=== PATIENT | male | born 1990 | race Caucasian/White ===

== ENCOUNTER 2018-02-23 12:50 | Inpatient (IN) | payer SELFPAY ==
--- NOTE | 2018-02-23 13:25 | EDPHY ---
H & P Stated Complaint: Infsct/swelling L hand;+IV drug use:last 3 days ago;also sore by mouth Time Seen by Provider: 02/23/18 13:24 HPI/ROS: CHIEF COMPLAINT: Hand pain and swelling HISTORY OF PRESENT ILLNESS: This is a 27-year-old male with a history of IVDA ( methamphetamine). He presents with pain and swelling involving his left hand. This initially began in the left thumb. He attributed it to dry cracked skin. He 1st noticed this 2 days ago, yesterday his left thumb was quite painful and today when he awoke the pain extended into his left wrist. It is made worse by any movement. He also notes redness and warmth of the thumb. He has not had fever today but thinks he might have had fever a few days ago. No methamphetamine use for 3 days so he has been going through withdrawal, which he believes is essentially completed. He also notes a painful sore on the right side of his mouth. REVIEW OF SYSTEMS: A ten point review of systems was performed and is negative with the exception of the items mentioned in the HPI. Past medical history: IVDA Past surgical history: Negative Social history: He is originally from [place]. He has been in the [facility] for 8 months. He is currently staying with friends. He smokes 1 pack of cigarettes daily. He quit alcohol 2 months ago. History of IV methamphetamine use, none for 3 days. General Appearance: Alert. Vital signs reviewed. Eyes: Pupils equal and round, no conjunctival injection, no discharge. Anicteric. ENT, Mouth: Mucous membranes are moist, no oropharyngeal erythema or edema. There is what appears to be a herpes simplex lesion at the corner of his mouth on the right--the lesion has vesicles. No intraoral lesions noted. Neck: No lymphadenopathy, supple. Respiratory: Lungs are clear to auscultation; no wheezes, rales, or rhonchi. Cardiovascular: Regular rate and rhythm; no murmur, rub, or gallop. Gastrointestinal: Abdomen is soft and nontender, no masses or organomegaly, bowel sounds normal. Skin: Skin of both hands is dirty and stained with what he says is paint. Track schmidt on the right arm in the antecubital fossa and also proximal upper arm. I also see a few possible kris puncture sites in the left arm. Skin of the left hand is dry and cracked. Skin of the digits is mildly erythematous and slightly warm. The left thumb is erythematous and warm with diffuse swelling. Back: Nontender to palpation over the thoracolumbar spine. No CVAT. Extremities: See skin exam above. There is swelling, erythema, and warmth of the digits of his left hand with the thumb being most involved. The thumb is swollen throughout its length; however, there is no tenderness along the flexor tendon and no pain with passive extension. He is holding his digits in flexion. He has pain along the anterior left wrist with some erythema extending on to the wrist itself. There is wrist pain with flexion or extension. Pulses: 2+ radial pulses bilaterally. Neurological: Alert and oriented. Moving all four extremities easily and equally. Psychiatric: Normal affect. - Personal History Current Tetanus Diphtheria and Acellular Pertussis (TDAP): No - Medical/Surgical History Other PMH: IV drug abuse - Social History Smoking Status: Current every day smoker Constitutional: Initial Vital Signs Temperature (C) 36.9 C 02/23/18 12:54 Heart Rate 88 02/23/18 12:54 Respiratory Rate 16 02/23/18 12:54 Blood Pressure 103/78 02/23/18 12:54 O2 Sat (%) 95 02/23/18 12:54 O2 Delivery Mode Room Air Allergies/Adverse Reactions: No Known Allergies Allergy (Unverified 02/23/18 12:54) Home Medications: Medication Instructions Recorded NK [No Known Home Meds] 02/23/18 Medical Decision Making ED Course/Re-evaluation: 27-year-old IVDA, left hand cellulitis. He was given a dose of IV vancomycin 1 g in the emergency department. I have spoken with Dr. Elisabeth Shelton, orthopedic surgery, who will see the patient in consultation to evaluate for the possibility of flexor tenosynovitis. The patient is being admitted to the hospitalist service for continued IV antibiotics and further treatment as needed. Differential Diagnosis: I considered a differential diagnosis that includes but is not limited to endocarditis, cellulitis, abscess, flexor tenosynovitis, septic arthritis. - Data Points Laboratory Results: Laboratory Results 02/23/18 13:10 02/23/18 13:10 02/23/18 02/23/18 13:10 13:10 WBC 7.99 10^3/uL 10^3/uL (3.80-9.50) RBC 4.88 10^6/uL 10^6/uL (4.40-6.38) Hgb 14.4 g/dL g/dL (13.7-17.5) Hct 43.1 % % (40.0-51.0) MCV 88.3 fL fL (81.5-99.8) MCH 29.5 pg pg (27.9-34.1) MCHC 33.4 g/dL g/dL (32.4-36.7) RDW 12.4 % % (11.5-15.2) Plt Count 328 10^3/uL 10^3/uL (150-400) MPV 9.8 fL fL (8.7-11.7) Neut % (Auto) 68.7 % % (39.3-74.2) Lymph % (Auto) 21.0 % % (15.0-45.0) Hand % (Auto) 6.9 % % (4.5-13.0) Eos % (Auto) 2.6 % % (0.6-7.6) Baso % (Auto) 0.5 % % (0.3-1.7) Nucleat RBC Rel Count 0.0 % % (0.0-0.2) Absolute Neuts (auto) 5.49 10^3/uL 10^3/uL (1.70-6.50) Absolute Lymphs (auto) 1.68 10^3/uL 10^3/uL (1.00-3.00) Absolute Monos (auto) 0.55 10^3/uL 10^3/uL (0.30-0.80) Absolute Eos (auto) 0.21 10^3/uL 10^3/uL (0.03-0.40) Absolute Basos (auto) 0.04 10^3/uL 10^3/uL (0.02-0.10) Absolute Nucleated RBC 0.00 10^3/uL 10^3/uL (0-0.01) Immature Gran % 0.3 % % (0.0-1.1) Immature Gran # 0.02 10^3/uL 10^3/uL (0.00-0.10) Sodium 143 mEq/L mEq/L (135-145) Potassium 4.6 mEq/L mEq/L (3.5-5.2) Chloride 103 mEq/L mEq/L (97-110) Carbon Dioxide 27 mEq/l mEq/l (22-31) Anion Gap 13 mEq/L mEq/L (8-16) BUN 16 mg/dL mg/dL (7-23) Creatinine 0.8 mg/dL mg/dL (0.7-1.3) Estimated GFR > 60 Glucose 91 mg/dL mg/dL (70-100) Calcium 9.4 mg/dL mg/dL (8.5-10.4) Medications Given: Nicotine (Nicoderm Cq) 21 mg TD DAILY ASHLEY Stop: 08/22/18 14:59 Last Admin: 02/23/18 16:04 Dose: 21 mg Discontinued Medications Vancomycin/Sodium Chloride (Vancomycin 1 Gm (Premix)) 250 mls @ 250 mls/hr IV EDNOW ONE PRN Reason: Protocol Stop: 02/23/18 15:03 Last Admin: 02/23/18 14:21 Dose: 250 mls Departure - Departure Disposition: [facility] Acute Clinical Impression: Cellulitis and abscess of hand Condition: Good
[2018-02-23 13:45] LABS: PLATELET COUNT 328 10^3/uL (150-400)
[2018-02-23] MEDS ORDERED: VANCOMYCIN HCL/NORMAL SALINE 250 ML IV ONE (14:04)
[2018-02-23] MEDS ORDERED: ACETAMINOPHEN 325 MG TAB PO PRN (14:19)
[2018-02-23] MEDS ORDERED: IBUPROFEN 200 MG TAB PO PRN (14:19)
[2018-02-23] MEDS ORDERED: ONDANSETRON DISINTEGRATING 4 MG TAB PO PRN (14:19)
[2018-02-23] MEDS ORDERED: ONDANSETRON 4 MG/2 ML VIAL IVP PRN (14:19)
[2018-02-23] MEDS ORDERED: PROMETHAZINE HCL 25 MG/ML INJ IVP PRN (14:19)
[2018-02-23] MEDS ORDERED: oxyCODONE IR 5 MG TAB PO PRN (14:51)
[2018-02-23] MEDS ORDERED: NICOTINE POLACRILEX 2 MG GUM B PRN (14:51)
[2018-02-23] MEDS: NICOTINE 21 MG/24 HR PATCH TD SCH (16:04)
--- NOTE | 2018-02-23 16:26 | PDGENHP ---
History and Physical - Chief Complaint pain/swelling thumb and wrist - History of Present Illness 27yo M with PMH of IVDA presenting with 2 days of pain and swelling in his left thumb, first finger and wrist. He denies any injury to the area. He notes that he has had a small crack in the skin of the left thumb for quite some time, but otherwise no broken skin. He is currently homeless and therefore has had very limited ability to remain clean and notes that his hands have been filthy for months. He does use IV drugs and shares needles, his last use was 3 days ago. He denies ever shooting into the wrist or hand on that affected side. He has not had fever or chills. He has no other skin lesions. He has never been tested for HIV or Hep c and would like to be. History Information - Allergies/Home Medication List Allergies/Adverse Reactions: No Known Allergies Allergy (Unverified 02/23/18 12:54) Home Medications: NK [No Known Home Meds] 02/23/18 [Last Taken Unknown] I have personally reviewed and updated: family history, medical history, social history, surgical history - Past Medical History Additional medical history: IV drug abuse - Surgical History Reports: no pertinent surgical hx - Family History Positive for: non-pertinent - Social History Smoking Status: Current every day smoker Alcohol Use: Sober Drug Use: Other (methamphetamine, IV) Review of Systems Review of Systems: ROS: 10pt was reviewed & negative except for what was stated in HPI & below Physical Exam Physical Exam: Temp Pulse Resp BP Pulse Ox 37.6 C 100 16 135/71 H 98 02/23/18 15:23 02/23/18 15:23 02/23/18 15:23 02/23/18 15:23 02/23/18 15:23 Constitutional: no apparent distress, appears nourished Eyes: PERRL, anicteric sclera Ears, Nose, Mouth, Throat: moist mucous membranes, hearing normal Cardiovascular: regular rate and rhythym, no murmur, rub, or gallop, No edema Respiratory: no respiratory distress, no rales or rhonchi, clear to auscultation Gastrointestinal: normoactive bowel sounds, soft, non-tender abdomen Genitourinary: no bladder tenderness Skin: warm, normal color Musculoskeletal: full muscle strength, joint tenderness, pain with ROM Neurologic: AAOx3 Psychiatric: interacting appropriately, not anxious, not encephalopathic Lab Data & Imaging Review 02/23/18 13:10 02/23/18 13:10 WBC 7.99 10^3/uL (3.80-9.50) 02/23/18 13:10 RBC 4.88 10^6/uL (4.40-6.38) 02/23/18 13:10 Hgb 14.4 g/dL (13.7-17.5) 02/23/18 13:10 Hct 43.1 % (40.0-51.0) 02/23/18 13:10 MCV 88.3 fL (81.5-99.8) 02/23/18 13:10 MCH 29.5 pg (27.9-34.1) 02/23/18 13:10 MCHC 33.4 g/dL (32.4-36.7) 02/23/18 13:10 RDW 12.4 % (11.5-15.2) 02/23/18 13:10 Plt Count 328 10^3/uL (150-400) 02/23/18 13:10 MPV 9.8 fL (8.7-11.7) 02/23/18 13:10 Neut % (Auto) 68.7 % (39.3-74.2) 02/23/18 13:10 Lymph % (Auto) 21.0 % (15.0-45.0) 02/23/18 13:10 [place] % (Auto) 6.9 % (4.5-13.0) 02/23/18 13:10 Eos % (Auto) 2.6 % (0.6-7.6) 02/23/18 13:10 Baso % (Auto) 0.5 % (0.3-1.7) 02/23/18 13:10 Nucleat RBC Rel Count 0.0 % (0.0-0.2) 02/23/18 13:10 Absolute Neuts (auto) 5.49 10^3/uL (1.70-6.50) 02/23/18 13:10 Absolute Lymphs (auto) 1.68 10^3/uL (1.00-3.00) 02/23/18 13:10 Absolute Monos (auto) 0.55 10^3/uL (0.30-0.80) 02/23/18 13:10 Absolute Eos (auto) 0.21 10^3/uL (0.03-0.40) 02/23/18 13:10 Absolute Basos (auto) 0.04 10^3/uL (0.02-0.10) 02/23/18 13:10 Absolute Nucleated RBC 0.00 10^3/uL (0-0.01) 02/23/18 13:10 Immature Gran % 0.3 % (0.0-1.1) 02/23/18 13:10 Immature Gran # 0.02 10^3/uL (0.00-0.10) 02/23/18 13:10 Sodium 143 mEq/L (135-145) 02/23/18 13:10 Potassium 4.6 mEq/L (3.5-5.2) 02/23/18 13:10 Chloride 103 mEq/L (97-110) 02/23/18 13:10 Carbon Dioxide 27 mEq/l (22-31) 02/23/18 13:10 Anion Gap 13 mEq/L (8-16) 02/23/18 13:10 BUN 16 mg/dL (7-23) 02/23/18 13:10 Creatinine 0.8 mg/dL (0.7-1.3) 02/23/18 13:10 Estimated GFR > 60 02/23/18 13:10 Glucose 91 mg/dL (70-100) 02/23/18 13:10 Calcium 9.4 mg/dL (8.5-10.4) 02/23/18 13:10 Assessment & Plan Assessment: Cellulitis (Acute) 27 yo homeless male with hx of IVDA presenting with left thumb cellulitis # left thumb cellulitis: in the setting of IVDA and poor hygiene. Started on vancomycin which will be continued for now. Unfortunately blood cultures were not obtained prior to abx, but will order now. Dr. Shelton of ortho consulted to eval for possible flexor tenosynovitis and will ask for ID to eval in am. # IVDA: last use 3 days prior to admission, hx of using dirty needles, will test for HIV/hep C. States he has had withdrawal in the last several days but it has now largely resolved. # homelessness: will ask CM to get involved # observation status, so long as above issues resolve will likely need < 48 hours stay Patient new to my care. Old records reviewed and summarized as above. Care plan reviewed with ER doctor as above.
--- NOTE | 2018-02-23 19:26 | ASMTCMCOM ---
CM Note CM Note Notes: Pt admitted with cellulitis and hx of IV drug use. Started on IV antibiotics. Per LISA Chen, asked to meet with pt's parents, Izabella and Donnie Inman. Per Izabella, pt's mother, pt has a long history of addictive behaviors. The pt has been struggling with substance abuse for years now and has had a few rehab stays without success. Most recently the pt was in a [facility] in [place] for meth use. The pt left the facility after one month and started using again. The mother says she has been working with [facility] here in [place], but the pt has been refusing treatment/detox. The mother states the pt "abuses everything - alcohol, meth, whatever he can get." The pt's mother says he "is currently homeless and either couch surfs or sleeps on the streets." She said "every time the pt gets a job, he spends all of his money on drugs or alcohol and then ends up getting fired." The parents are both willing to help the pt get into a rehab and to let him return home, if he will sober up. Both parents are requesting CM assistance with drug/alcohol resources and/or placement for treatment. Parents would ideally like to there to be an intervention. This CM explained we can assist the family with a care conference and can provide resources, but given pt's age, pt has to be willing and open to discussion. CM unable to meet with pt today. CM to see pt on Sun 02/24 to discuss current situation/needs and to provide resources. Both parents given CM business card for further questions or concerns. Will continue to follow. Current Discharge Plan: To be determined Date Signed: 02/23/2018 07:25 PM Electronically Signed By:Natty Howell RN
[2018-02-24] MEDS: VANCOMYCIN 1.25 GM in NS 250 ML IV SCH ×2 (02:09→13:25)
[2018-02-24] MEDS: NICOTINE 21 MG/24 HR PATCH TD SCH (10:29)
--- NOTE | 2018-02-24 14:05 | HOSPPROG ---
Hospitalist Progress Note Assessment/Plan: # Acute left thumb cellulitis/suspect tenosynovitis - pt with pronounced pain with movement of his thumb and fingers Erythema slightly improved overnight since IV abx- Blood Cx NGTD oxygen saturations 95% on RA - contacted Dr. Shelton who will eval today - cont IV vancomycin - encouraged pt to shower and clear hands for assessments today - NSAIDS prn # h/o IVDA - no active signs of withdrawal - will need resources for dc # proph - lovenox # diet - NPO until ortho eval # dispo - > 2MN as requires IV abx and ortho eval for hand cellulitis I have discussed the case with Dr. Shelton he will eval today Subjective: no noticeable improvement Objective: Vital Signs Temp Pulse Resp BP Pulse Ox 37.3 C 84 16 128/59 H 96 02/24/18 11:36 02/24/18 11:36 02/24/18 11:36 02/24/18 11:36 02/24/18 11:36 02/23/18 02/24/18 02/25/18 05:59 05:59 05:59 Intake Total 800 Balance 800 - Physical Exam Constitutional: appears nourished, unkempt Eyes: anicteric sclera Ears, Nose, Mouth, Throat: dry mucous membranes Cardiovascular: regular rate and rhythym Respiratory: no respiratory distress Gastrointestinal: normoactive bowel sounds Genitourinary: no bladder fullness Skin: other (erythema on palmar aspect of left thumb and marked assoicated swell ) Musculoskeletal: other (limited ROM of the fingers and thumb on left hand) Neurologic: AAOx3 Psychiatric: interacting appropriately Lymph, Heme, Immunologic: no cervical LAD ICD10 Worksheet Patient Problems: Problems Problem Status Onset Cellulitis Acute Cellulitis and abscess of hand Acute
--- NOTE | 2018-02-24 14:41 | PDMN ---
Medical Necessity Medical necessity: C/M review: Patient [place] [facility] Cellulitis: Acute and persistent left thumb cellulitis - suspect tenosynovitis , left thumb erythema, pain requiring planned 02/24/2018 Hand Surgery consult, ongoing IV Vancomycin Q 12 hrs., NSAIDS as needed, comorbid history of IV drug abuse. MD anticipates > 2 MN LOS for ongoing med nec for eval and TX of above.
--- NOTE | 2018-02-24 15:44 | SOAPPROG ---
SOAP Progress Note Assessment/Plan: Assessment: Plan: Subjective: states pain is better pain with passive motion but inconsistent swelling into thumb cont abx re-eval tomorrow full consult to be dictated Objective: Vital Signs Temp Pulse Resp BP Pulse Ox 37.4 C 87 16 115/68 97 02/24/18 15:10 02/24/18 15:10 02/24/18 15:10 02/24/18 15:10 02/24/18 15:10 02/23/18 02/24/18 02/25/18 05:59 05:59 05:59 Intake Total 800 Balance 800 ICD10 Worksheet Patient Problems: Problems Problem Status Onset Cellulitis Acute Cellulitis and abscess of hand Acute
--- NOTE | 2018-02-24 16:21 | GCON ---
[f rep st] CONSULTATION INFECTIOUS DISEASE CONSULTATION DATE OF CONSULTATION: 02/24/2018 REFERRING PHYSICIAN: Daren Barragan MD REASON FOR CONSULTATION: Left thumb and hand infection for further evaluation and opinion. CHIEF COMPLAINT: Acute swelling, redness, and pain of the left thumb and hand into the wrist. HISTORY OF PRESENTING ILLNESS: This is a 27-year-old, male with a past medical history significant for ADHD and injection drug usage. He recently used methamphetamine about 4 days ago. About 3 days ago, he developed acute pain and swelling of his left thumb and 1st finger that actually extended into his palm and into his wrist. He noticed that it was red in nature as well. He denied any fevers or shaking chills. He denied any trauma to his extremity. He stated that his hands are chronically cracked and it is hard to keep his hands clean. He denied any injection into the thumb or wrist or that extremity at all. He says he normally injects into his right upper extremity. The patient was placed on vancomycin therapy. The area was somewhat demarcated. At present, the area of erythema has improved from areas of demarcation. The skin is not hot or warm to touch. The left thumb and hand are swollen still and there is some focal swelling down to the wrist area as well. He has pain with flexion and extension of his fingers, worse when he extends his fingers. He also has pain while flexing and extending his wrist. Infectious Disease is now consulted for further evaluation and opinion. REVIEW OF SYSTEMS: GENERAL: No fevers or shaking chills. HEAD: No headaches. EYES: No change in vision. ENT: No sore throat, difficulty swallowing, ear pain, or ear drainage. CARDIOVASCULAR: No chest pain or rapid heartbeat. RESPIRATORY: No shortness of breath, cough, or sputum production. ABDOMEN: No nausea, vomiting, abdominal pain, or diarrhea. : No dysuria or hematuria. BACK: No flank pain or back pain. EXTREMITIES: No lower extremity edema. MUSCULOSKELETAL: No other joint pains. SKIN: No other rashes or open wounds except for he does have a little sore around his corner of his mouth that he has been dealing with that has sort of drained, crusts, and scabs and then falls off and then drains, crusts, and scabs. He also has friction changes from his shoe on the back of his left leg. There is a small pustule there as well. Rest of 10-point review of systems was essentially negative except for above. PAST MEDICAL HISTORY: Significant for ADHD and injection drug usage. PAST SURGICAL HISTORY: None. ALLERGIES: No known drug allergies. SOCIAL HISTORY: He smokes a pack per day. He does not drink alcohol. He uses IV meth amphetamine since the age of 22. He states he lives with his family here. He is sexually active with female preference. He only intermittently uses condoms. He does not know his sexual partners well. He denies any history of sexually-transmitted infections. Patient believes he received all his childhood immunizations. FAMILY HISTORY: Reviewed and found to be noncontributory. PHYSICAL EXAMINATION: VITAL SIGNS: Temperature 34.4. Pulse is 87. Respiratory rate is 16, blood pressure 115/68, saturation 90% on room air. GENERAL: Patient is resting in bed in no acute respiratory distress. Awake, alert, oriented x3. HEENT: Eyes: Pupils equal, round, react to light. There is no conjunctival injection or petechiae. Oropharynx is clear. There is no posterior erythema or thrush. CARDIOVASCULAR: S1, S2. Regular rate and rhythm. No obvious murmurs appreciated. RESPIRATORY: Clear to auscultate bilaterally. No rhonchi or rales appreciated. ABDOMEN: Positive bowel sounds in upper quadrants. Soft, nontender, and nondistended. No obvious organomegaly appreciated. EXTREMITIES: No lower extremity edema. No obvious joint pain or tenderness on palpation of the knees. He has a small abrasion over his left lower leg, and he has a small pimple just above that. Other pertinent findings : His left thumb is acutely swollen extending into the palm and there is this other small area of swelling of the wrist. It is painful for him to extend his digits. The skin is not warm or hot to touch. The erythema has improved when compared to demarcated lines, but the areas are tender to palpate especially over the wrist and when extending the digits. LABS: White blood cell count 7.9, hemoglobin 14.4. Platelets are 328. Neutrophil count is 68.7. Chemistry is sodium 142, potassium 4.6, chloride 103 , bicarb 27, BUN is 16, creatinine 0.8. HIV antibody pending. Hep C antibody pending. Blood cultures x2 sets pending. ASSESSMENT: Acute left thumb and hand cellulitis/infection with extension of erythema down into the wrist and forearm with possible tenosynovitis. PLAN: At this point in time, patient is responding to vancomycin therapy well. There has been good clinical response and recession of erythema from demarcated lines. However, patient continues to have pain and swelling as well as pain with extension and flexion of digits. Dr. Shelton has been consulted. So await his evaluation to determine best next step. He will likely need exploration. Cultures are pending. Will continue on vancomycin. Care coordinated with hospitalist team and his nurse. Thank you very much for providing this opportunity to care for your patient in consultation. /[id number]/MODL MTDD
--- NOTE | 2018-02-24 16:56 | GCON ---
[f rep st] CONSULTATION INPATIENT CONSULTATION DATE OF CONSULTATION: 02/24/2018 CHIEF COMPLAINT: Left hand and thumb pain. HISTORY OF PRESENT ILLNESS: The patient is a 27-year-old male, an IV drug abuser, who developed pain into his hand. He states he was not injecting around this area, and simply that his skin was cracke d in the area. He developed pain and swelling into the thumb. He has been admitted for antibiotic u se. I have been asked to evaluate him for surgical treatment. PHYSICAL EXAMINATION: GENERAL: Patient is grossly neurologically intact to all the digits, to the r adial, median and ulnar nerves. He has minimal pain to range of motion to the wrist, to flexion and extension. He has some swelling and tenderness noted to the anterior portion of the DRUJ. He is als o tender to the thenar eminence and to the thumb itself. He has some minor pain noted to passive ran ge of motion across the IP joint of the thumb, as well as [id number] pain to passive range of m otion to the middle and ring fingers, but not to the index or small fingers. ASSESSMENT AND PLAN: The patient is status post left hand infection. Secondary to his physical exam ination, as well as being afebrile, discussion was had with the patient regarding conservative versus operative treatment. Given his improvement in symptomatology and the inconsistency in his [place] s igns, it is decided to continue with conservative management, reevaluate tomorrow and see if he virginie nues to have improving or worsening symptoms, and have treatment guided based on not only his symptom atology, but also whether he remains afebrile, and what his white count continues to do. /[id number]/MODL
[2018-02-24] MEDS: MUPIROCIN 2% 22 GM OINT TP SCH ×2 (17:36→23:04)
[2018-02-25] MEDS: VANCOMYCIN 1.25 GM in NS 250 ML IV SCH ×2 (02:10→14:42)
[2018-02-25] MEDS: NICOTINE 21 MG/24 HR PATCH TD SCH (08:45)
[2018-02-25] MEDS: MUPIROCIN 2% 22 GM OINT TP SCH ×3 (08:46→21:06)
--- NOTE | 2018-02-25 10:30 | SOAPPROG ---
SOAP Progress Note Assessment/Plan: Assessment: Plan: L hand infection - appears to be improving w/ abx, will con't to monitor, should not require I&D 02/25/18 10:29 Subjective: Reports improvement in both pain and function of the hand. Has more ROM today than he did yesterday. Objective: Vital Signs Temp Pulse Resp BP Pulse Ox 36.5 C 75 16 122/65 H 96 02/25/18 10:04 02/25/18 10:04 02/25/18 10:04 02/25/18 10:04 02/25/18 10:04 Laboratory Results 02/25/18 04:32 02/24/18 02/25/18 02/26/18 05:59 05:59 05:59 Intake Total 800 500 Balance 800 500 NO fever, minimal pain to palp over the fingers and thumb, swelling is improved , no lymphangitis. - Time Spent With Patient Time Spent With Patient: 10 - Pending Discharge Pending Discharge Within 24 Hours: No Pending Discharge Within 48 Hours: No ICD10 Worksheet Patient Problems: Problems Problem Status Onset Cellulitis Acute Cellulitis and abscess of hand Acute
[2018-02-25] MEDS ORDERED: TDAP ADULT 0.5 ML INJ (BOOSTRIX) IM ONE (12:10)
[2018-02-25 12:46] LABS: HEPATITIS B SURFACE ANTIGEN NEGATIVE (NEGATIVE)
[2018-02-25 13:03] LABS: HEPATITIS B CORE AB TOTAL NEGATIVE (NEGATIVE)
--- NOTE | 2018-02-25 13:15 | PCMIDPN ---
Assessment/Plan: Assessment/Plan: * Left hand tenosynovitis in the setting of injection drug use: Clinically improved with vancomycin. Range of motion of digits significantly better. Continue to follow thumb exam to ensure does not evolve into drainable abscess. Continue vancomycin in interim. * Injection drug use: HIV antibody and hepatitis serologies pending. Will provide Tdap as patient is unclear when had last tetanus booster. 02/25/18 13:12 Subjective: Patient with less left hand pain and improved range of motion. Objective: Vital Signs Temp Pulse Resp BP Pulse Ox 36.5 C 75 16 122/65 H 96 02/25/18 10:04 02/25/18 10:04 02/25/18 10:04 02/25/18 10:04 02/25/18 10:04 Laboratory Results 02/25/18 10:57 02/25/18 04:32 02/24/18 02/25/18 02/26/18 05:59 05:59 05:59 Intake Total 800 500 Balance 800 500 Vancomycin # 2 Blood cultures x2 no growth - Physical Exam General Appearance: alert, no apparent distress EENT: No conjunctival petechiae Respiratory: lungs clear, No respiratory distress Cardiac/Chest: regular rate, rhythm, No systolic murmur Extremities: inflammation (Left hand with resolution of erythema with residual edema and tenderness of thumb; flexion and extension markedly improved; possible underlying fluid in left thumb pad although no faizan fluctuance) Skin: No embolic lesions ICD10 Worksheet Patient Problems: Problems Problem Status Onset Cellulitis Acute Cellulitis and abscess of hand Acute
[2018-02-25 13:21] LABS: HEPATITIS C ANTIBODY TOTAL REACTIVE (NEGATIVE); HIV TYPE 1 AND 2 NEGATIVE (NEGATIVE)
--- NOTE | 2018-02-25 17:12 | HOSPPROG ---
Hospitalist Progress Note Assessment/Plan: # Acute left thumb cellulitis/suspect tenosynovitis - pt with markedly reduced pain with movement of his thumb and fingers Erythema improved overnight - Blood Cx NGTD oxygen saturations 95% on RA - Dr. Shelton agrees with conservative management - cont IV vancomycin - NSAIDS prn # h/o IVDA - no active signs of withdrawal - HIV pending - will need resources for dc # proph - lovenox # diet - regular # dispo - > 2MN as requires IV abx and ortho eval for hand cellulitis I have discussed the case with RN - pt has been cleared to eat by ortho - cont current IV abx Subjective: feels better Objective: Vital Signs Temp Pulse Resp BP Pulse Ox 36.9 C 96 16 125/67 H 97 02/25/18 16:51 02/25/18 16:51 02/25/18 16:51 02/25/18 16:51 02/25/18 16:51 Laboratory Results 02/25/18 10:57 02/25/18 04:32 02/24/18 02/25/18 02/26/18 05:59 05:59 05:59 Intake Total 800 500 Balance 800 500 - Physical Exam Constitutional: unkempt Eyes: anicteric sclera Ears, Nose, Mouth, Throat: moist mucous membranes Cardiovascular: regular rate and rhythym Respiratory: no respiratory distress Gastrointestinal: normoactive bowel sounds Genitourinary: no bladder fullness Skin: warm Musculoskeletal: No normal joint ROM, No asymmetric calves Neurologic: AAOx3 Psychiatric: interacting appropriately Lymph, Heme, Immunologic: no cervical LAD ICD10 Worksheet Patient Problems: Problems Problem Status Onset Cellulitis Acute Cellulitis and abscess of hand Acute
[2018-02-26] MEDS: VANCOMYCIN 1.25 GM in NS 250 ML IV SCH ×2 (02:16→15:08)
[2018-02-26] MEDS: NICOTINE 21 MG/24 HR PATCH TD SCH (10:21)
[2018-02-26] MEDS: MUPIROCIN 2% 22 GM OINT TP SCH ×2 (10:21→15:08)
--- NOTE | 2018-02-26 14:08 | PCMIDPN ---
Assessment/Plan: Assessment/Plan: 1. Left thumb cellulitis: - marked improvement over past 48 hours. - ROM improved -blood cx ngtd - on Vanco - change to oral bactrim ds twice daily plus keflex 500mg q6- x 10 days. - f/u in office next - side effects of therapy reviewed with patient - care cooridnated with hospitalist team Subjective: afebrile. feels better. denies sob, abd pain or diarrhea. Objective: Vital Signs Temp Pulse Resp BP Pulse Ox 36.2 C 65 16 122/72 H 99 02/26/18 09:16 02/26/18 09:16 02/26/18 09:16 02/26/18 09:16 02/26/18 09:16 Laboratory Results 02/25/18 10:57 02/25/18 04:32 02/25/18 02/26/18 02/27/18 05:59 05:59 05:59 Intake Total 500 1000 Balance 500 1000 - Physical Exam General Appearance: alert, no apparent distress Respiratory: lungs clear Cardiac/Chest: regular rate, rhythm Extremities: swelling (left hand with marked improvment in swelling involving left thumb/hand. no erythema. only tender at base of thumb on palmar surface but with palpation only. can flex and extend fingers. can't make tight fist due to residual swelling. not warm to touch.) Abdomen: normal bowel sounds, non-tender, soft, No distended Skin: No erythema ICD10 Worksheet Patient Problems: Problems Problem Status Onset Cellulitis Acute Cellulitis and abscess of hand Acute
--- NOTE | 2018-02-26 14:17 | SOAPPROG ---
SOAP Progress Note Assessment/Plan: Assessment: Plan: Subjective: doing much better moving all digits without pain NT along thenar and tendon sheath cont abx does not need surgery will sign off Objective: Vital Signs Temp Pulse Resp BP Pulse Ox 36.2 C 65 16 122/72 H 99 02/26/18 09:16 02/26/18 09:16 02/26/18 09:16 02/26/18 09:16 02/26/18 09:16 Laboratory Results 02/25/18 10:57 02/25/18 04:32 02/25/18 02/26/18 02/27/18 05:59 05:59 05:59 Intake Total 500 1000 Balance 500 1000 ICD10 Worksheet Patient Problems: Problems Problem Status Onset Cellulitis Acute Cellulitis and abscess of hand Acute
--- NOTE | 2018-02-26 16:56 | GDS ---
[f rep st] DISCHARGE SUMMARY DISCHARGE DIAGNOSES: Include: 1. Acute left thumb cellulitis/tenosynovitis. 2. Intravenous drug abuse history. HISTORY OF PRESENT ILLNESS: A 27-year-old male who presents with acute pain of his left thumb. For details of patient's initial presentation, please see the history and physical dated 02/23/2018. CONSULTATIVE SERVICES: Include Infectious Disease and Hand Surgery. PROCEDURES: None. HOSPITAL COURSE: By issue: 1. Patient was initiated on IV vancomycin. Was seen by Orthopedics as well as Infectious Disease. He had slow improvement over the first 24 hours of his stay, but in the subsequent 24, made marked im provement, with increased mobility of his fingers, marked decrease in the edema and erythema of his h and. On the day disposition, he is near normal. He will be transitioned to oral Bactrim and Keflex for a 10-day course and is to follow with the Infectious Disease specialist in 7 days' time, prior to cessation of antibiotics, for post disposition examination. 2. IV drug abuse. Patient has been provided resources to he and his family for ongoing cessation in the outpatient setting. MEDICATIONS AT THE TIME OF DISPOSITION: Please reference the med rec printed on 02/26/2018. FOLLOWUP APPOINTMENTS: Include with Dr. Elias in 7 days' time. PENDING STUDIES: At the time of this dictation include blood cultures drawn 02/23/2018, which are pr eliminary/no growth to date. I spent greater than 30 minutes in the planning and coordination of this discharge. /[id number]/MODL
[2018-02-26 17:51] VITALS: BP 124/71
== END 2018-02-26 19:00 | disposition home or self-care (01) | DRG 603 ==
LOC: OBSVTOIN 14:23 → INTOOBSV 14:23 → F1N 15:17
PROVIDERS: ADMIT Internal Medicine; ATTEND Hospitalist
DX: L03.012 Cellulitis of left finger (principal); M65.142 Other infective (teno)synovitis, left hand; F15.90 Other stimulant use, unspecified, uncomplicated; Z59.0 Homelessness; Z23 Encounter for immunization
CPT/HCPCS: 86704-90; 97165-GO; G0378; G0472; J3370

== ENCOUNTER 2018-08-02 16:17 | Emergency (ER) | payer MEDICAID ==
[2018-08-02 16:39] VITALS: BP 148/63
[2018-08-02] MEDS ORDERED: DEXAMETHASONE 4 MG TAB PO ONE (17:02)
--- NOTE | 2018-08-02 17:06 | EDPHY ---
H & P Stated Complaint: st Time Seen by Provider: 08/02/18 17:02 HPI/ROS: HPI: This is a 28-year-old male who presents with Chief Complaint: Sore throat Location: Throat Quality: Sore Duration: 2 days Signs and Symptoms: + subjective fever, + chills, no nausea, no vomiting, no diarrhea, no urinary symptoms, no chest pain, no shortness of breath, no wheezing, no cough, no neck stiffness, no joint pain, +swollen glands, no ear pain, no rash Timing: Rapid onset, constant Severity: 05/28 Context: Patient is [employer] work release stable [employer] [facility] [employer] due to his history of IV drug use and legal problems presents with complaints of sudden onset of a sore throat for the last 2 days. He reports that he has swollen glands, no cough, subjective fevers and chills at night. He reports that he has bunk mates that have been diagnosed with strep recently. Modifying Factors: Comment: ROS: A comprehensive 10 system review of systems is otherwise negative aside from elements mentioned in the history of present illness. MEDICAL/SURGICAL/SOCIAL HISTORY: Medical history: IV drug user. Does not take any regular medications. Surgical history: Denies Social history: In work release staying at [facility]. + Tobacco user. Family history noncontributory. CONSTITUTIONAL: Nontoxic-appearing, polite and cooperative, adult white male, awake and alert, no obvious distress HEENT: Atraumatic and normocephalic, PERRL, EOMI. Nares patent; no rhinorrhea; no nasal mucosal edema. Tympanic membranes clear. Oropharynx clear, tonsils 2 + with moderate erythema; uvula midline; no exudate and moist pink mucosa. Airway patent. +spotty anterior cervical lymphadenopathy. No meningismus. Cardiovascular: Normal S1/S2, regular rate, regular rhythm, without murmur rub or gallop. PULMONARY/CHEST: Symmetrical and nontender. Clear to auscultation bilaterally. Good air movement. No accessory muscle usage. ABDOMEN: Soft, nondistended, nontender, no rebound, no guarding, no peritoneal signs, no masses or organomegaly. No CVAT. EXTREMITIES: 2/2 pulses, strength 5/5, no deformities, no clubbing, no cyanosis or edema. NEUROLOGICAL: no focal neuro deficits. GCS 15. SKIN: Warm and dry, no erythema. no rash. Good capillary refill. Source: Patient Exam Limitations: No limitations - Personal History Current Tetanus Diphtheria and Acellular Pertussis (TDAP): Yes - Medical/Surgical History Hx Asthma: No Hx Chronic Respiratory Disease: No Hx Diabetes: No Hx Cardiac Disease: No Hx Renal Disease: No Hx Cirrhosis: No Hx Alcoholism: No Hx HIV/AIDS: No Hx Splenectomy or Spleen Trauma: No Other PMH: IV drug abuse - Social History Smoking Status: Current every day smoker Constitutional: Initial Vital Signs Temperature (C) 37 C 08/02/18 16:37 Heart Rate 87 08/02/18 16:37 Respiratory Rate 17 08/02/18 16:37 Blood Pressure 148/63 H 08/02/18 16:37 O2 Sat (%) 94 08/02/18 16:37 O2 Delivery Mode Room Air Allergies/Adverse Reactions: No Known Allergies Allergy (Verified 08/02/18 16:35) Home Medications: Medication Instructions Recorded Amoxicillin Trihydrate [Amoxil] 500 mg PO TID 10 Days cap 08/02/18 Medical Decision Making ED Course/Re-evaluation: Vital signs reviewed and stable upon arrival. No signs of tonsillar abscess, respiratory distress, airway compromise, meningitis Rapid Strep negative. Sent for throat culture. Due to patient's high risk environment and strep exposure, will treat with amoxicillin times 10 days and given p.o. Decadron 10 mg This patient was seen under the supervision of my secondary supervising physician. I evaluated care for this patient independently. Discussed this patient with Dr. Cortes. Differential Diagnosis: Differential diagnosis includes but is not limited to viral pharyngitis, streptococcal pharyngitis, tonsillar abscess, sinusitis, upper respiratory infection. - Data Points Laboratory Results: 08/02/18 08/02/18 Unknown 16:40 Group A Strep Screen NEGATIVE (NEGATIVE) Group A Strep DNA Pending Departure - Departure Disposition: Home, Routine, Self-Care Clinical Impression: Exposure to Streptococcal pharyngitis Acute tonsillitis Qualifiers: Pharyngitis/tonsillitis etiology: unspecified etiology Qualified Code(s): J03.90 - Acute tonsillitis, unspecified Condition: Good Instructions: Strep Throat (ED) Additional Instructions: Take Amoxicillin 3 times a day for the next 10 days. Do not skip a dose. Take Tylenol 650 mg every 4 hours and/or Ibuprofen 600 mg every 8 hours with food as needed for pain. Consume a minimum of 8-10 glasses of water or electrolyte fluid replacement drinks that include Gatorade, Powerade, Pedialyte. Eat a bland diet for the next 48 hours and then slowly advance as tolerated. Return to the ER immediately if you cannot swallow, have drooling, fevers, neck stiffness, cannot open your jaw, or any other symptoms that concern you. Referrals: [facility],. [Clinic] - As per Instructions Stand Alone Forms: Work Excuse Prescriptions: Amoxicillin Trihydrate [Amoxil] 500 mg PO TID 10 Days cap
== END 2018-08-02 17:25 | disposition home or self-care (01) ==
DX: J03.90 Acute tonsillitis, unspecified (principal); F17.200 Nicotine dependence, unspecified, uncomplicated; Z20.818 Contact with and (suspected) exposure to other bacterial communicable diseases

== ENCOUNTER 2018-09-28 07:38 | Emergency (ER) | payer MEDICAID ==
--- NOTE | 2018-09-28 07:46 | EDPHY ---
H & P Stated Complaint: R arm possible abscess Time Seen by Provider: 09/28/18 07:46 - Medical/Surgical History Hx Asthma: No Hx Chronic Respiratory Disease: No Hx Diabetes: No Hx Cardiac Disease: No Hx Renal Disease: No Hx Cirrhosis: No Hx Alcoholism: No Hx HIV/AIDS: No Hx Splenectomy or Spleen Trauma: No Other PMH: IV drug abuse - Social History Smoking Status: Current every day smoker Constitutional: Initial Vital Signs Temperature (C) 36.5 C 09/28/18 07:42 Heart Rate 84 09/28/18 07:42 Respiratory Rate 16 09/28/18 07:42 Blood Pressure 111/75 09/28/18 07:42 O2 Sat (%) 97 09/28/18 07:42 O2 Delivery Mode Room Air Allergies/Adverse Reactions: No Known Allergies Allergy (Verified 09/28/18 07:40) Home Medications: Medication Instructions Recorded NK [No Known Home Meds] 09/28/18 Medical Decision Making ED Course/Re-evaluation: CHIEF COMPLAINT: Right arm abscess HISTORY OF PRESENT ILLNESS: The patient is a 28 y/o male with a history of IV drug abuse complaining of redness and swelling due to a probable abscess of his right arm onset Sunday or Sunday, 4 days ago. He states that he usually "shoots up" before going to [facility], which he did recently and most likely caused his symptoms. The swelling has increased and is making it difficult for him to bend his elbow. No fevers, chills, myalgias, chest pain, shortness of breath, abdominal pain, urinary or bowel complaints, numbness, paresthesias. REVIEW OF SYSTEMS: A comprehensive 10 system review of systems is otherwise negative aside from elements mentioned in the history of present illness and medical decision making. PHYSICAL EXAM: HR, BP, O2 Sat, RR. Temp noted General Appearance: Alert, well hydrated, appropriate, and non-toxic appearing. Head: Atraumatic without scalp tenderness or obvious injury Eyes: Pupils equal, round, reactive to light and accommodation, EOMI, no trauma , no injection. Ears: Clear bilaterally, no perforation, normal landmarks Nose: Atraumatic, no rhinorrhea, clear. Throat: There is no erythema or exudates, no lesions, normal tonsils, mucus membranes moist. Neck: Supple, 2+ carotid upstroke, nontender, no lymphadenopathy. Respiratory: No retractions, no distress, no wheezes, and no accessory muscle use. Lungs are clear to auscultation bilaterally. Cardiovascular: Regular rate and rhythm, no murmurs, rubs, or gallops. Bilateral carotid, radial, dorsalis pedis, and posterior tibial pulses intact. Good capillary refill all extremities. Gastrointestinal: Abdomen is soft, nontender, non-distended, no masses, no rebound, no guarding, no peritoneal signs. Musculoskeletal: Normal active ROM of all extremities, atraumatic. Neurological: Alert, appropriate, and interactive. The patient has normal DTRs and non-focal cranial nerves, motor, sensory, and cerebellar exam. Skin: No rashes, good turgor, no nodules on palpation. Past medical history: IV drug abuse Past surgical history: Denies Family history: Denies Social history: Lives in [place], single, not employed DIAGNOSTICS/PROCEDURES/CRITICAL CARE TIME: Procedure: Abscess drainage. The patient's abscess was located on the right antecubital fossa. Risks, benefits, alternatives discussed with the patient and consent obtained. The area was anesthetized with a 50/50 solution of 1% lidocaine with epinephrine and bupivacaine with epinephrine. The abscess was incised with a #11 blade and purulent drainage was expressed. The wound was irrigated and packed. The patient tolerated the procedure well. The procedure was performed by myself, Dr. Grove. DIFFERENTIAL DIAGNOSIS: The differential diagnosis for the patient's indurated and erythemic abscess included but was not limited to abscess, cellulitis, lymphangitis, and sepsis. MEDICAL DECISION MAKING: The patient is a 28 y/o male with a history of IV drug abuse presenting with redness and swelling due to a probable abscess of his right arm onset Sunday or Sunday, 4 days ago. He has a large walnut-sized abscess in the right antecubital fossa that is indurated, fluctuant, and erythemic. There is no evidence of surrounding cellulitis or lymphangitis and he has no systemic illness. I will perform and I&D. 0800: Reassessed patient and performed an I&D. There was a large amount of fluctuance expressed. I have prescribed him a course of Bactrim and advised him to keep the packing in place for 2 days. Return precautions provided; patient is comfortable with this plan. Departure - Departure Disposition: Home, Routine, Self-Care Clinical Impression: Abscess of right arm Condition: Good Instructions: Abscess (ED) Additional Instructions: 1. Take Bactrim as prescribed. 2. Keep the packing in place for 2 days. 3. Return to the Emergency Department for fever, redness, discharge from wound, increasing pain or other worsening of condition. Referrals: [facility],. [Clinic] - As per Instructions Report Scribed for: Joaquim Grove Report Scribed by: Lisbeth Zarate Date of Report: 09/28/18 Time of Report: 07:47
[2018-09-28 07:51] VITALS: BP 111/75
[2018-09-28] MEDS ORDERED: SULFAMETHOX/TMP 800/160 MG 1 TAB PO ONE (08:15)
== END 2018-09-28 08:24 | disposition home or self-care (01) ==
PROC: 0H9BXZZ Drainage of Right Upper Arm Skin, External Approach (ICD-10-PCS; principal; 2018-09-28)
DX: L02.413 Cutaneous abscess of right upper limb (principal); F17.200 Nicotine dependence, unspecified, uncomplicated; F19.10 Other psychoactive substance abuse, uncomplicated

== ENCOUNTER 2018-10-01 12:47 | Emergency (ER) | payer MEDICAID ==
[2018-10-01] MEDS ORDERED: SULFAMETHOX/TMP 800/160 MG 1 TAB PO ONE (13:38)
--- NOTE | 2018-10-01 13:59 | EDPHY ---
H & P Stated Complaint: wound check abcess /iv drug use r arm/did not get abx yet Time Seen by Provider: 10/01/18 13:20 HPI/ROS: CHIEF COMPLAINT: Abscess recheck HISTORY OF PRESENT ILLNESS: 28-year-old male with IVDA presents for recheck of a right antecubital fossa abscess. He was seen here 3 days ago and had I and D of the abscess. The packing fell out and he did not fill the prescription for antibiotics. He now presents with increasing redness and pain. The pain is moderate and persistent. No fever. He is currently staying at the [facility]. Tetanus is up-to-date. REVIEW OF SYSTEMS: complete 10 point ROS reviewed and is negative except for the noted elements in the HPI - Personal History Current Tetanus Diphtheria and Acellular Pertussis (TDAP): Yes - Medical/Surgical History Hx Asthma: No Hx Chronic Respiratory Disease: No Hx Diabetes: No Hx Cardiac Disease: No Hx Renal Disease: No Hx Cirrhosis: No Hx Alcoholism: No Hx HIV/AIDS: No Hx Splenectomy or Spleen Trauma: No Other PMH: IV drug abuse - Social History Smoking Status: Current every day smoker Drug Use: Other (IVDA) Additional Social History: Homeless - Physical Exam Exam: Alert and oriented, pleasant Extremities: Right antecubital fossa-1 cm open wound with surrounding erythema , approximately 3 cm in diameter, fluctuant, no packing in place Skin: As above Neuro: Motor and sensory intact Vascular: Capillary refill brisk distally. Constitutional: Initial Vital Signs Temperature (C) 36.7 C 10/01/18 12:52 Heart Rate 105 H 10/01/18 12:52 Respiratory Rate 18 10/01/18 12:52 Blood Pressure 121/87 H 10/01/18 12:52 O2 Sat (%) 99 10/01/18 12:52 O2 Delivery Mode Room Air Allergies/Adverse Reactions: No Known Allergies Allergy (Verified 10/01/18 12:52) Home Medications: Medication Instructions Recorded Sulfamethox/Tmp 800/160 mg 1 tab PO BID #14 tab 09/28/18 [Bactrim Ds] Sulfamethox/Tmp 800/160 mg 1 tab PO BID #14 tab 10/01/18 [Bactrim Ds] Medical Decision Making Procedures: Procedure: Abscess drainage. The patient's abscess was located on the right antecubital fossa. Risks, benefits, alternatives discussed with the patient and consent obtained. The abscess was incised with a #11 blade and purulent drainage was expressed. The wound was irrigated and packed. The patient tolerated the procedure well. The procedure was performed by myself. ED Course/Re-evaluation: This patient presents with a persistent abscess. Repeat I and D performed by me. Bactrim 1 tablet orally given. A prescription for Bactrim was dispensed and we made an appointment for the patient at [facility] for tomorrow. Warning signs discussed. Departure - Departure Disposition: Home, Routine, Self-Care Clinical Impression: Abscess Condition: Good Instructions: Abscess (ED) Additional Instructions: 1. Keep the area bandaged. Change the bandage daily. 2. Keep the packing in place. 3. Take antibiotics as prescribed. 4. Follow up tomorrow at [facility] as scheduled. 5. Return for worsening symptoms or any concerns. Referrals: NONE *PRIMARY CARE P,. [Primary Care Provider] - As per Instructions Prescriptions: Sulfamethox/Tmp 800/160 mg [Bactrim Ds] 1 tab PO BID #14 tab
[2018-10-01 14:21] VITALS: BP 118/96
--- NOTE | 2018-10-01 18:53 | ASMTCMCOM ---
CM Note CM Note Notes: Pt presented to the ED from [facility] for ongoing right abscess due to IVDA. Pt was recently seen in the ED on 09/29 and discharged w/a Rxn for antibiotics. Pt states he was unable to fill his Rxn but not able to give a reason why. This CM filled pt's antibiotic Rxn through his Medicaid via [facility]. Pt wants to return to [facility]; this CM called and confirmed pt would be able to return. Pt was also provided an appt at [facility] tomorrow 10/02/18 at 12:20pm. Pt knows to arrive by 11:50am. This CM spoke w/ [facility] and they said they would be able to assist getting the patient to his PC appt tomorrow but might not be able to accept him back due to pt already having "an extended stay there." CM asked if pt would be a candidate for their Transitional Residential Treatment program and they said no. Pt aware that he will need to call [facility] after his PC appt to see if he can return for further treatment. Pt also provided a [facility] pamphlet and encouraged him to call and enroll in their program. Pt provided a cab voucher to [facility]. Pt very pleasant and appreciative of assistance. CM available for further assistance if needed. Date Signed: 10/01/2018 06:52 PM Electronically Signed By:Mary Vides RN
== END 2018-10-01 14:17 | disposition home or self-care (01) ==
PROC: 0H9BXZZ Drainage of Right Upper Arm Skin, External Approach (ICD-10-PCS; principal; 2018-10-01)
DX: L02.413 Cutaneous abscess of right upper limb (principal); F19.10 Other psychoactive substance abuse, uncomplicated; F17.200 Nicotine dependence, unspecified, uncomplicated

== ENCOUNTER 2018-10-05 21:49 | Emergency (ER) | payer MEDICAID ==
[2018-10-05 21:56] VITALS: BP 138/94
--- NOTE | 2018-10-05 22:17 | EDPHY ---
HPI/HX/ROS/PE/MDM Narrative: CHIEF COMPLAINT: Concern for frostbite HPI: The patient is a transient 28 y/o male with a history of IV drug abuse arriving for evaluation of possible frostbite on his fingertips. He says, "I got the coldest I've ever been in my life tonight. It's my second night on the streets" and "my finger tips were starting to get frozen and I was scared they were getting frostbitten." He denies any other complaints. REVIEW OF SYSTEMS: A comprehensive 10 system review of systems is otherwise negative aside from elements mentioned in the history of present illness. PMH: IV drug abuse, abscess I&D one week ago. SOCIAL HISTORY: [place] PHYSICAL EXAM: General:Patient is alert, in no acute distress. ENT:Eyes are normal to inspection. ENT inspection normal. Neck: Normal inspection. Full range of motion. Respiratory:No respiratory distress. Cardiovascular: Normal cap refill. Skin: Normal color. No rash. Warm and dry. Extremities: Normal appearance. Full range of motion. Both hands are warm with normal capillary refill. Neuro: Oriented x3. Normal motor function. Normal sensory function. ED Course: This is a transient 28 y/o male who presents complaining of cold hands. His hands are warm with good capillary refill and no signs of silva bite on exam. Recommended keeping extremities warm and dry. Return precautions discussed. General Time Seen by Provider: 10/05/18 22:07 Initial Vital Signs: Initial Vital Signs Temperature (C) 37 C 10/05/18 21:52 Heart Rate 115 H 10/05/18 21:52 Respiratory Rate 20 10/05/18 21:52 Blood Pressure 138/94 H 10/05/18 21:52 O2 Sat (%) 93 10/05/18 21:52 O2 Delivery Mode Room Air Allergies/Adverse Reactions: No Known Allergies Allergy (Verified 10/05/18 21:52) Home Medications: Medication Instructions Recorded Sulfamethox/Tmp 800/160 mg 1 tab PO BID #14 tab 09/28/18 [Bactrim Ds] Sulfamethox/Tmp 800/160 mg 1 tab PO BID #14 tab 10/01/18 [Bactrim Ds] Departure - Departure Disposition: Home, Routine, Self-Care Clinical Impression: Cold hands Condition: Good Instructions: Additional Information Additional Instructions: Keep hands dry and warm. Follow up with primary care provider as needed. Referrals: [facility],. [Clinic] - As per Instructions Report Scribed for: Denny Pabon Report Scribed by: Karen Hamilton Date of Report: 10/05/18 Time of Report: 22:09 Physician Review and Approval Statement: Portions of this note were transcribed by an ED scribe. I personally performed the history, physical exam, and medical decision making; and confirm the accuracy of the information in the transcribed note.
== END 2018-10-05 22:25 | disposition home or self-care (01) ==
DX: T69.8XXA Other specified effects of reduced temperature, initial encounter (principal); X31.XXXA Exposure to excessive natural cold, initial encounter; Z59.0 Homelessness